=== PATIENT | male | born 1950 | race Caucasian/White ===

== ENCOUNTER 2020-12-18 10:36 | Outpatient (REF) | payer OTHER, SELFPAY ==
[2020-12-18 13:45] LABS: MANUAL DIFF FLAG NO
[2020-12-18 13:48] LABS: Basophils Absolute Auto 0.1 X10*3/uL (0.0-0.2); Basophils Percent Auto 0.8 % (0-2); Eosinophils Absolute Auto 0.1 X10*3/uL (0.0-0.4); Eosinophils Percent Auto 0.8 % (0-4); Hematocrit 39.4 % (42-52); Hemoglobin 13.1 g/dl (14.0-18.0); Imm Gran Abs Auto 0.03 X10*3/uL (0.00-0.03); Imm Gran Pct Auto 0.4 % (0.0-0.4); Lymphocytes Absolute Auto 1.8 X10*3/uL (1.2-4.9); Lymphocytes Percent Auto 25.6 % (20-40); Mean Corpuscular HGB Conc 33.2 g/dl (31.0-36.0); Mean Corpuscular Hemoglobin 30.3 pg (27.0-33.0); Mean Corpuscular Volume 91.2 fL (80-98); Mean Platelet Volume 12.1 fL (9.4-12.4); Monocytes Absolute Auto 0.7 X10*3/uL (0.1-1.2); Monocytes Percent Auto 9.2 % (2-11); Neutrophils Absolute Auto 4.5 X10*3/uL (2.0-8.3); Neutrophils Percent Auto 63.2 % (45-73); Platelet Count 249 X10*3/uL (160-400); Red Blood Count 4.32 X10*6/uL (4.60-5.80); Red Cell Distribution Width 14.5 % (11.0-16.0); White Blood Count 7.2 X10*3/uL (4.8-10.8)
[2020-12-18 14:08] LABS: Alanine Aminotransferase 16 U/L (0-40); Albumin Level 4.7 g/dL (3.5-5.0); Alkaline Phosphatase 137 U/L (39-117); Anion Gap 14 (12-20); Aspartate Amino Transferase 25 U/L (5-37); Bilirubin Total 0.5 mg/dL (0.0-1.0); Blood Urea Nitrogen 11 mg/dL (9-16); Calcium 9.6 mg/dL (8.4-10.2); Carbon Dioxide 27 mmol/L (22-29); Chloride 102 mmol/L (96-108); Cholesterol 222 mg/dL; Estimated Glomerular Filt Rate > 60; Glucose Fasting 97 mg/dL (60-99); HDL Cholesterol 72 mg/dL; LDL Cholesterol Calculated 138 mg/dl; Potassium 4.5 mmol/L (3.3-5.1); Sodium 138 mmol/L (135-145); Total Protein 7.3 g/dL (6.5-8.0); Triglycerides 60 mg/dL
[2020-12-18 14:30] LABS: TSH reflex Free T4 1.13 uIU/mL (0.32-4.0)
== END 2020-12-18 10:37 | disposition home or self-care (01) ==
LOC: HO.HMGCLDS 10:36
PROVIDERS: PCP Internal Medicine; Visit Provider Internal Medicine
DX: Z76.89 Persons encountering health services in other specified circumstances (principal)
CPT/HCPCS: 36415; 80053; 80061; 84443; 85025

== ENCOUNTER 2021-03-26 07:08 | Outpatient (REF) | payer MEDICARE, SELFPAY ==
[2021-03-26 12:35] LABS: Alanine Aminotransferase 16 U/L (0-40); Albumin Level 4.5 g/dL (3.5-5.0); Alkaline Phosphatase 124 U/L (39-117); Aspartate Amino Transferase 23 U/L (5-37); Bilirubin Direct 0.2 mg/dL (0.0-0.5); Bilirubin Total 0.4 mg/dL (0.0-1.0); Total Protein 6.9 g/dL (6.5-8.0)
== END 2021-03-26 07:09 | disposition home or self-care (01) ==
LOC: HO.HMGCLDS 07:08
PROVIDERS: PCP Internal Medicine; Visit Provider Internal Medicine
DX: R79.89 Other specified abnormal findings of blood chemistry (principal)
CPT/HCPCS: 36415; 80076

== ENCOUNTER 2021-12-20 09:13 | Outpatient (REF) | payer MEDICARE, SELFPAY ==
[2021-12-20 11:11] LABS: MANUAL DIFF FLAG NO
[2021-12-20 11:19] LABS: Basophils Absolute Auto 0.1 X10*3/uL (0.0-0.2); Basophils Percent Auto 0.9 % (0-2); Eosinophils Absolute Auto 0.1 X10*3/uL (0.0-0.4); Hematocrit 38.4 % (42.0-52.0); Imm Gran Abs Auto 0.04 X10*3/uL (0.00-0.03); Imm Gran Pct Auto 0.6 % (0.0-0.4); Lymphocytes Absolute Auto 1.7 X10*3/uL (1.2-4.9); Lymphocytes Percent Auto 25.7 % (20-40); Mean Corpuscular HGB Conc 33.9 g/dl (31.0-36.0); Mean Corpuscular Hemoglobin 29.7 pg (27.0-33.0); Mean Corpuscular Volume 87.9 fL (80.0-98.0); Mean Platelet Volume 11.4 fL (9.4-12.4); Monocytes Absolute Auto 0.7 X10*3/uL (0.1-1.2); Monocytes Percent Auto 10.9 % (2-11); Neutrophils Absolute Auto 4.1 x10*3/uL (2.0-8.3); Neutrophils Percent Auto 60.9 % (45-73); Platelet Count 260 X10*3/uL (160-400); Red Blood Count 4.37 X10*6/uL (4.60-5.80); White Blood Count 6.8 X10*3/uL (4.8-10.8)
[2021-12-20 11:32] LABS: Alanine Aminotransferase 11 U/L (0-40); Albumin Level 4.6 g/dL (3.5-5.0); Alkaline Phosphatase 124 U/L (39-117); Anion Gap 14 (12-20); Aspartate Amino Transferase 23 U/L (5-37); Bilirubin Total 0.8 mg/dL (0.0-1.0); Blood Urea Nitrogen 13 mg/dL (9-16); Calcium 9.2 mg/dL (8.4-10.2); Carbon Dioxide 25 mmol/L (22-29); Chloride 100 mmol/L (96-108); Estimated Glomerular Filt Rate > 60; Glucose Random 100 mg/dL (60-115); Potassium 4.6 mmol/L (3.3-5.1); Sodium 134 mmol/L (135-145); Total Protein 7.1 g/dL (6.5-8.0)
== END 2021-12-20 09:14 | disposition home or self-care (01) ==
LOC: HO.HMGCLDS 09:13
PROVIDERS: PCP Internal Medicine; Visit Provider Internal Medicine
DX: Z00.01 Encounter for general adult medical examination with abnormal findings (principal); R79.89 Other specified abnormal findings of blood chemistry; D64.9 Anemia, unspecified
CPT/HCPCS: 36415; 80053; 85025

== ENCOUNTER 2022-12-23 08:20 | Outpatient (AMB) | payer MEDICARE, SELFPAY ==
[2022-12-23 08:22] VITALS: BP 136/70; PULSE 61; O2SAT 96; BMI 23.9
--- NOTE | 2022-12-23 08:22 | MHC.PC.OV ---
Vital Signs 12/23/22 08:22 Height 5 ft 6 in Weight 148 lb 2 oz BMI 23.9 BP 136/70 Blood Pressure Location Rt brachial Position Sitting Pulse 61 Pulse Source Pulse Oximeter Pulse Oximetry (%) 96 Oxygen Delivery Method Room Air Intake Visit Reasons: Annual PE Allergies acetaminophen [From Percocet] Adverse Reaction (Mild, Verified 12/23/22 08:22) upset stomach latex Adverse Reaction (Mild, Verified 12/23/22 08:22) skin breakout oxycodone [From Percocet] Adverse Reaction (Mild, Verified 12/23/22 08:22) upset stomach Tobacco use date assessed: 12/23/22 Fall risk assessment: No Falls in past year Last assessed Fall Risk: 12/23/22 Dental Screening Dental Screen Date: 12/23/22 Did you have a dental visit in the last 12 months?: Yes Did you have a dental problem in the last 6 months where you did not have access to dental care?: No Was dental information given to patient?: No HPI Annual PE HPI Details Patient is 72-year-old gentleman came in today for his annual physical exam Continue to decline colonoscopy Due for labs patient is fasting today Patient is slightly anemic hemoglobin stable He has alkaline phosphatase is also elevated which is also stable 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 Has read 60 normals this past year. Return in 1 year for physical exam [facility] Family History Paternal Grandmother Diabetes Paternal Aunt Diabetes Father Substance use disorder Social History Housing: House Patient Tobacco Use Status: Former Tobacco user Quit Date: 1972 Tobacco use type: Cigarette Cigarette Packs Per Day: 0.5 Years Smoked: 5 e-Cigarette/Vaping Use: Never Used Current occupational status: retired Cognitive needs: No Hearing needs: No Vision needs: Yes Questionnaire PHQ-9 Over the last 2 weeks, how often have you been bothered by any of the following problems? 1. Little interest or pleasure in doing things: not at all 2. Feeling down, depressed, or hopeless: not at all 3. Trouble falling or staying asleep, or sleeping too much: not at all 4. Feeling tired or having little energy: not at all 5. Poor appetite or overeating: not at all 6. Feeling bad about yourself - or that you are a failure or have let yourself or your family down: not at all 7. Trouble concentrating on things, such as reading the newspaper or watching television: not at all 8. Moving or speaking so slowly that other people could have noticed. Or the opposite - being so fidgety or restless that you have been moving around a lot more than usual: not at all 9. Thoughts that you would be better off or of hurting yourself in some way: not at all Total score: 0 Depression Screening Interpretation: Negative 93682 - PHQ-9 Billing: Yes Source: Developed by Drs. Bertrand Arana, Katrin Kim, Shai Centeno and colleagues, with an educational pj from [employer]. Thrive Questionnaire Date Thrive assessed: 12/23/22 I am a: Patient What is your living situation today?: I have a steady place to live Within the past 12 months, did the food you bought not last and you didn't have the money to get more?: Never true Within the past 12 months, did you worry whether your food would run out before you got money to buy more?: Never true Do you have trouble paying for medicines?: No Do you have trouble getting transportation to medical appointments?: No Do you have trouble paying your heating and electricity bill?: No Do you have trouble taking care of your child, family member or friend?: No Do you have trouble with day-to-day activities such as bathing, preparing meals, shopping, managing finances, etc.?: No Are you currently unemployed and looking for a job?: No Are you interested in more education?: No AUDIT C Alcohol Use Questionnaire (AUDIT-C) 1. How often do you have a drink containing alcohol?: Monthly or less 2. How many drinks containing alcohol do you have on a typical day when you are drinking?: 1 or 2 3. How often do you have six or more drinks on one occasion?: Never Total Score: 1 Score Reviewed/Action Taken: Yes KEMAL-7 AMB Questionnaire KEMAL-7 Date KEMAL - 7 assessed: 12/23/22 Feeling nervous, anxious, or on edge: 0 = Not at all Not being able to stop or control worryin = Not at all Worrying too much about different things: 0 = Not at all Trouble relaxin = Not at all Being so restless that it is hard to sit still: 0 = Not at all Becoming easily annoyed or irritable: 0 = Not at all Feeling afraid as if something awful might happen: 0 = Not at all Total KEMAL-7 score (0-4 normal; 5-9 mild; 10-14 moderate; 15-21 severe): 0 Source: Developed by Drs. Bertrand Arana, Katrin Kim, Shai Centeno and colleagues, with an educational pj from [employer]. KEMAL-7 Assessment Billing KEMAL-7 Assessment Tool: KEMAL-7 Assessment 53546 Review of Systems Const Denies chills, Denies fever(s) and Denies headache(s) Eyes Denies blurry vision ENT Denies headache(s), Denies nasal discharge, Denies nasal obstruction, Denies odynophagia and Denies sinus pain Card Denies chest pain at rest and Denies chest pain with activity Resp Denies cough and Denies hemoptysis GI Denies diarrhea, Denies odynophagia, Denies vomiting and Denies hematemesis Reports as per HPI Musc Denies abnormal gait Skin/Breast Reports as per HPI Neuro Denies Neuro-related abnormal movements, Denies Abnormal speech present, Denies abnormal gait, Denies headache(s) and Denies Sensory deficit (Neuro) Psych Denies mood swings and Denies paranoia Endo Reports as per HPI Av/Lymph Reports as per HPI Aller/Immun Reports as per HPI Physical exam (Primary Care) Vital Signs: Last Vital Signs Pulse 61 12/23/22 08:22 BP 136/70 12/23/22 08:22 Pulse Ox 96 12/23/22 08:22 Oxygen Delivery Method Room Air 12/23/22 08:22 BMI result Body Mass Index 23.9 Tobacco/Smoking Status: Tobacco use Status Tobacco use date assessed 12/23/22 12/23/22 08:24 Patient Tobacco Use Status Former Tobacco user 12/23/22 08:24 Tobacco use type Cigarette 12/23/22 08:24 e-Cigarette/Vaping Use Never Used 12/23/22 08:24 PHQ-9: PHQ-9 Score PHQ-9: Total score 0 12/23/22 08:39 Depression Screening Interpretation: Negative Thrive Assessment: Date of Thrive Assessment Date Thrive assessed 12/23/22 12/23/22 08:33 Const General: cooperative, comfortable and no acute distress Orientation/consciousness: patient oriented x3 HENMT Head: Yes normocephalic and Yes atraumatic Eyes General: appearance normal, both eyes and all related structures Pupils: Equal, round and reactive pupils present EOM: EOMs intact bilaterally Neck Neck: Yes supple and No lymphadenopathy Thyroid: Thyroid normal Lymphatic: no lymphadenopathy noted Resp Effort & Inspection: normal respiratory effort and able to speak in complete sentences Auscultation: clear to auscultation bilaterally Cardio Heart sounds: S1 normal heart sound present and S2 normal heart sound present GI Palpation (GI): Soft to palpation and nontender Auscultation: normal bowel sounds General: Yes no CVA tenderness Back/Spine/Pelvis Back: no CVA tenderness Skin General skin exam: elasticity normal and turgor normal Neuro General: patient oriented x3 and gait normal Cranial nerves: Yes Equal, round and reactive pupils present Speech: No Abnormal speech present Sensory Exam: No Sensory deficit (Neuro) Coordination: tandem gait normal and Romberg test negative Extrem General: Yes normal exam except as noted and No edema Assessment and Plan Assessment & Plan (1) Encounter for general adult medical examination with abnormal findings: Code(s): Z00.01 - Encounter for general adult medical examination with abnormal findings (2) Anemia: Code(s): D64.9 - Anemia, unspecified (3) LFT elevation: Code(s): R79.89 - Other specified abnormal findings of blood chemistry (4) Colonoscopy refused: Code(s): Z53.20 - Procedure and treatment not carried out because of patient's decision for unspecified reasons (5) Arthritis: Code(s): M19.90 - Unspecified osteoarthritis, unspecified site Plan Patient is 72-year-old gentleman came in today for his annual physical exam Continue to decline colonoscopy Due for labs patient is fasting today Patient is slightly anemic hemoglobin stable He has alkaline phosphatase is also elevated which is also stable 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 Has read 60 normals this past year. Return in 1 year for physical exam Orders: Orders Comprehensive [place]. Panel Fast Today D64.9 - Anemia, unspecified, M19.90 - Unspecified osteoarthritis, unspecified site, R79.89 - Other specified abnormal findings of blood chemistry, Z00.01 - Encounter for general adult medical examination with abnormal findings Lipid Panel Today D64.9 - Anemia, unspecified, M19.90 - Unspecified osteoarthritis, unspecified site, R79.89 - Other specified abnormal findings of blood chemistry, Z00.01 - Encounter for general adult medical examination with abnormal findings Complete Blood Count Auto Diff Today D64.9 - Anemia, unspecified, M19.90 - Unspecified osteoarthritis, unspecified site, R79.89 - Other specified abnormal findings of blood chemistry, Z00.01 - Encounter for general adult medical examination with abnormal findings IRON PROFILE Today D64.9 - Anemia, unspecified, M19.90 - Unspecified osteoarthritis, unspecified site, R79.89 - Other specified abnormal findings of blood chemistry, Z00.01 - Encounter for general adult medical examination with abnormal findings Vitamin D 25-OH (D2 and D3) Today D64.9 - Anemia, unspecified, M19.90 - Unspecified osteoarthritis, unspecified site, R79.89 - Other specified abnormal findings of blood chemistry, Z00.01 - Encounter for general adult medical examination with abnormal findings Coding Level of Care Code Est Pt Prev Care >65y(96238) Diagnoses Encounter for general adult medical examination with abnormal findings Z00.01 Anemia D64.9 LFT elevation R79.89 Colonoscopy refused Z53.20 Arthritis M19.90 Additional Codes KEMAL-7 Assessment Billing - KEMAL-7 Assessment Tool: KEMAL-7 Assessment 94603 ([id number])
== END 2022-12-23 08:47 | disposition home or self-care (01) ==
PROVIDERS: Visit Provider Internal Medicine
DX: Z00.00 Encounter for general adult medical examination without abnormal findings (principal); D64.9 Anemia, unspecified; R79.89 Other specified abnormal findings of blood chemistry; Z53.20 Procedure and treatment not carried out because of patient's decision for unspecified reasons; M19.90 Unspecified osteoarthritis, unspecified site
CPT/HCPCS: 99397

== ENCOUNTER 2022-12-23 08:49 | Outpatient (REF) | payer MEDICARE, SELFPAY ==
[2022-12-23 11:17] LABS: MANUAL DIFF FLAG NO
[2022-12-23 11:24] LABS: Basophils Absolute Auto 0.1 X10*3/uL (0.0-0.2); Basophils Percent Auto 0.8 % (0-2); Eosinophils Absolute Auto 0.1 X10*3/uL (0.0-0.4); Hematocrit 38.7 % (42.0-52.0); Hemoglobin 12.7 g/dl (14.0-18.0); Imm Gran Abs Auto 0.05 X10*3/uL (0.00-0.03); Imm Gran Pct Auto 0.8 % (0.0-0.4); Lymphocytes Absolute Auto 1.7 X10*3/uL (1.2-4.9); Lymphocytes Percent Auto 27.8 % (20-40); Mean Corpuscular HGB Conc 32.8 g/dl (31.0-36.0); Mean Corpuscular Hemoglobin 29.8 pg (27.0-33.0); Mean Corpuscular Volume 90.8 fL (80.0-98.0); Mean Platelet Volume 12.1 fL (9.4-12.4); Monocytes Absolute Auto 0.6 X10*3/uL (0.1-1.2); Monocytes Percent Auto 9.9 % (2-11); Neutrophils Absolute Auto 3.6 x10*3/uL (2.0-8.3); Neutrophils Percent Auto 59.7 % (45-73); Platelet Count 232 X10*3/uL (160-400); Red Blood Count 4.26 X10*6/uL (4.60-5.80); Red Cell Distribution Width 14.5 % (11.0-16.0); White Blood Count 6.1 X10*3/uL (4.8-10.8)
[2022-12-23 12:09] LABS: Alanine Aminotransferase 11 U/L (0-40); Albumin Level 4.5 g/dL (3.5-5.0); Alkaline Phosphatase 114 U/L (39-117); Anion Gap 11 (12-20); Aspartate Amino Transferase 21 U/L (5-37); Bilirubin Total 0.6 mg/dL (0.0-1.0); Blood Urea Nitrogen 14 mg/dL (9-16); Calcium 9.4 mg/dL (8.4-10.2); Carbon Dioxide 25 mmol/L (22-29); Chloride 105 mmol/L (96-108); Cholesterol 209 mg/dL; Estimated Glomerular Filt Rate > 60; Glucose Fasting 104 mg/dL (60-99); HDL Cholesterol 64 mg/dL; Iron 92 mcg/dL (45-160); LDL Cholesterol Calculated 132 mg/dl; Percent Iron Saturation 28 % (15-50); Potassium 4.3 mmol/L (3.3-5.1); Sodium 137 mmol/L (135-145); Total Iron Binding Capacity 328 mcg/dL (228-428); Total Protein 7.2 g/dL (6.5-8.0); Triglycerides 69 mg/dL; Unsaturated Iron Binding 236 ug/dL
[2022-12-27 15:34] LABS: Vitamin D 25-OH, D2 <4 ng/mL; Vitamin D 25-OH, D3 44 ng/mL; Vitamin D 25-OH, Total 44 ng/mL (30-100)
== END 2022-12-23 08:50 | disposition home or self-care (01) ==
LOC: HO.HMGCLDS 08:49
PROVIDERS: PCP Internal Medicine; Visit Provider Internal Medicine
DX: Z00.01 Encounter for general adult medical examination with abnormal findings (principal); D64.9 Anemia, unspecified; M19.90 Unspecified osteoarthritis, unspecified site; R79.89 Other specified abnormal findings of blood chemistry
CPT/HCPCS: 36415; 80053; 80061; 82306; 83540; 85025

== ENCOUNTER 2024-01-08 09:51 | Outpatient (AMB) | payer MEDICARE, SELFPAY ==
[2024-01-08 09:52] VITALS: BP 130/70; PULSE 55; O2SAT 99; BMI 23.6
--- NOTE | 2024-01-08 09:52 | MHC.PC.OV ---
Vital Signs 01/08/24 09:52 Height 5 ft 6 in Weight 146 lb 2 oz BMI 23.6 BP 130/70 Blood Pressure Location Rt brachial Position Sitting Pulse 55 Pulse Source Pulse Oximeter Pulse Oximetry (%) 99 Oxygen Delivery Method Room Air Intake Visit Reasons: PE - see comments Allergies acetaminophen [From Percocet] Adverse Reaction (Mild, Verified 01/08/24 09:55) upset stomach latex Adverse Reaction (Mild, Verified 01/08/24 09:55) skin breakout oxycodone [From Percocet] Adverse Reaction (Mild, Verified 01/08/24 09:55) upset stomach Medication List - Last Reconciled 01/08/24 by Agueda Grubbs MD betamethasone dipropionate 0.05% 1 appl topical DAILY PRN Tobacco use date assessed: 01/08/24 Fall risk assessment: No Falls in past year Last assessed Fall Risk: 01/08/24 Dental Screening Dental Screen Date: 01/08/24 Did you have a dental visit in the last 12 months?: Yes Did you have a dental problem in the last 6 months where you did not have access to dental care?: No Was dental information given to patient?: Patient has dentist HPI PE - see comments HPI Details Patient is 73-year-old gentleman came in today for his annual physical exam Continue to decline colonoscopy Due for labs patient is fasting today Last year his fasting sugar came back at 104 Patient is slightly anemic hemoglobin stable He has alkaline phosphatase is also elevated which is also stable 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 Offer no new complaints Patient like to read and has read a lot of books since last 1 year Follow-up 1 year [facility] Family History Paternal Grandmother Diabetes Paternal Aunt Diabetes Father Substance use disorder Social History Housing: House Patient Tobacco Use Status: Former Tobacco user Tobacco use type: Cigarette Cigarette Packs Per Day: 0.5 Years Smoked: 5 e-Cigarette/Vaping Use: Never Used service: No Current occupational status: retired Cognitive needs: No Hearing needs: No Vision needs: Yes Questionnaire PHQ-9 Over the last 2 weeks, how often have you been bothered by any of the following problems? 1. Little interest or pleasure in doing things: not at all 2. Feeling down, depressed, or hopeless: not at all 3. Trouble falling or staying asleep, or sleeping too much: not at all 4. Feeling tired or having little energy: not at all 5. Poor appetite or overeating: not at all 6. Feeling bad about yourself - or that you are a failure or have let yourself or your family down: not at all 7. Trouble concentrating on things, such as reading the newspaper or watching television: not at all 8. Moving or speaking so slowly that other people could have noticed. Or the opposite - being so fidgety or restless that you have been moving around a lot more than usual: not at all 9. Thoughts that you would be better off or of hurting yourself in some way: not at all Total score: 0 Depression Screening Interpretation: Negative Depression Screening Done: Yes 43661 - PHQ-9 Billing: Yes Source: Developed by Drs. Bertrand Arana, Katrin Kim, Shai Centeno and colleagues, with an educational pj from [employer]. Thrive Questionnaire Date Thrive assessed: 01/08/24 I am a: Patient What is your living situation today?: I have a steady place to live Within the past 12 months, did the food you bought not last and you didn't have the money to get more?: Never true Within the past 12 months, did you worry whether your food would run out before you got money to buy more?: Never true Do you have trouble paying for medicines?: No Do you have trouble getting transportation to medical appointments?: No Do you have trouble paying your heating and electricity bill?: No Do you have trouble taking care of your child, family member or friend?: No Do you have trouble with day-to-day activities such as bathing, preparing meals, shopping, managing finances, etc.?: No Are you currently unemployed and looking for a job?: No Are you interested in more education?: No Please select the resources that you would like help with: None Currently or been in a relationship where the following occur: No concerns reported THRIVE Score: 0 AUDIT C Alcohol Use Questionnaire (AUDIT-C) 1. How often do you have a drink containing alcohol?: Never 3. How often do you have six or more drinks on one occasion?: Never Total Score: 0 Score Reviewed/Action Taken: Yes KEMAL-7 AMB Questionnaire KEMAL-7 Date KEMAL - 7 assessed: 01/08/24 Feeling nervous, anxious, or on edge: 0 = Not at all Not being able to stop or control worryin = Not at all Worrying too much about different things: 0 = Not at all Trouble relaxin = Not at all Being so restless that it is hard to sit still: 0 = Not at all Becoming easily annoyed or irritable: 0 = Not at all Feeling afraid as if something awful might happen: 0 = Not at all Total KEMAL-7 score (0-4 normal; 5-9 mild; 10-14 moderate; 15-21 severe): 0 Source: Developed by Drs. Bertrand Arana, Katrin Kim, Shai Centeno and colleagues, with an educational pj from [employer]. KEMAL-7 Assessment Billing KEMAL-7 Assessment Tool: KEMAL-7 Assessment 15283 Review of Systems Const Denies chills, Denies fever(s) and Denies headache(s) Eyes Denies blurry vision ENT Denies headache(s), Denies nasal discharge, Denies nasal obstruction, Denies odynophagia and Denies sinus pain Card Denies chest pain at rest and Denies chest pain with activity Resp Denies cough and Denies hemoptysis GI Denies diarrhea, Denies odynophagia, Denies vomiting and Denies hematemesis Reports as per HPI Musc Denies abnormal gait Skin/Breast Reports as per HPI Neuro Denies Neuro-related abnormal movements, Denies Abnormal speech present, Denies abnormal gait, Denies headache(s) and Denies Sensory deficit (Neuro) Psych Denies mood swings and Denies paranoia Endo Reports as per HPI Av/Lymph Reports as per HPI Aller/Immun Reports as per HPI Physical exam (Primary Care) Vital Signs: Last Vital Signs Pulse 55 01/08/24 09:52 BP 130/70 01/08/24 09:52 Pulse Ox 99 01/08/24 09:52 Oxygen Delivery Method Room Air 01/08/24 09:52 BMI result Body Mass Index 23.6 Tobacco/Smoking Status: Tobacco use Status Tobacco use date assessed 01/08/24 01/08/24 09:57 Patient Tobacco Use Status Former Tobacco user 01/08/24 09:53 Tobacco use type Cigarette 01/08/24 09:53 e-Cigarette/Vaping Use Never Used 01/08/24 09:53 PHQ-9: PHQ-9 Score PHQ-9: Total score 0 01/08/24 10:03 Depression Screening Interpretation: Negative Thrive Assessment: Date of Thrive Assessment Date Thrive assessed 01/08/24 01/08/24 09:57 Currently or been in a relationship where the following occur: No concerns reported Const General: cooperative, comfortable and no acute distress Orientation/consciousness: patient oriented x3 HENMT Head: Yes normocephalic and Yes atraumatic Eyes General: appearance normal, both eyes and all related structures Pupils: Equal, round and reactive pupils present EOM: EOMs intact bilaterally Neck Neck: Yes supple and No lymphadenopathy Thyroid: Thyroid normal Lymphatic: no lymphadenopathy noted Resp Effort & Inspection: normal respiratory effort and able to speak in complete sentences Auscultation: clear to auscultation bilaterally Cardio Heart sounds: S1 normal heart sound present and S2 normal heart sound present GI Palpation (GI): Soft to palpation and nontender Auscultation: normal bowel sounds General: Yes no CVA tenderness Back/Spine/Pelvis Back: no CVA tenderness Skin General skin exam: elasticity normal and turgor normal Neuro General: patient oriented x3 and gait normal Cranial nerves: Yes Equal, round and reactive pupils present Speech: No Abnormal speech present Sensory Exam: No Sensory deficit (Neuro) Coordination: tandem gait normal and Romberg test negative Extrem General: Yes normal exam except as noted and No edema Assessment and Plan Assessment & Plan (1) Encounter for general adult medical examination with abnormal findings: Code(s): Z00.01 - Encounter for general adult medical examination with abnormal findings (2) Anemia: Code(s): D64.9 - Anemia, unspecified Qualifiers: Anemia type: unspecified type Qualified Code(s): D64.9 - Anemia, unspecified (3) Impaired fasting blood sugar: Code(s): R73.01 - Impaired fasting glucose (4) Colonoscopy refused: Code(s): Z53.20 - Procedure and treatment not carried out because of patient's decision for unspecified reasons (5) Arthritis: Code(s): M19.90 - Unspecified osteoarthritis, unspecified site Plan Patient is 73-year-old gentleman came in today for his annual physical exam Continue to decline colonoscopy Due for labs patient is fasting today Last year his fasting sugar came back at 104 Patient is slightly anemic hemoglobin stable He has alkaline phosphatase is also elevated which is also stable 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 Offer no new complaints Patient like to read and has read a lot of books since last 1 year Follow-up 1 year Orders: Orders Vitamin D 25-OH (D2 and D3) Today D64.9 - Anemia, unspecified, Z00.01 - Encounter for general adult medical examination with abnormal findings Ferritin Today D64.9 - Anemia, unspecified, Z00.01 - Encounter for general adult medical examination with abnormal findings Complete Blood Count Auto Diff Today D64.9 - Anemia, unspecified, R73.01 - Impaired fasting glucose, Z00.01 - Encounter for general adult medical examination with abnormal findings TSH reflex Free T4 Today D64.9 - Anemia, unspecified, Z00.01 - Encounter for general adult medical examination with abnormal findings Vitamin B12 Today D64.9 - Anemia, unspecified, Z00.01 - Encounter for general adult medical examination with abnormal findings Hemoglobin A1c Today D64.9 - Anemia, unspecified, Z00.01 - Encounter for general adult medical examination with abnormal findings Comprehensive [place]. Panel Fast Today D64.9 - Anemia, unspecified, M19.90 - Unspecified osteoarthritis, unspecified site, R73.01 - Impaired fasting glucose, Z00.01 - Encounter for general adult medical examination with abnormal findings Lipid Panel Today D64.9 - Anemia, unspecified, M19.90 - Unspecified osteoarthritis, unspecified site, R73.01 - Impaired fasting glucose, Z00.01 - Encounter for general adult medical examination with abnormal findings Coding Level of Care Code Est Pt Level 3 (03894) Est Pt Prev Care >65y(62733) Diagnoses Encounter for general adult medical examination with abnormal findings Z00.01 Anemia, unspecified type D64.9 Anemia type: unspecified type Impaired fasting blood sugar R73.01 Colonoscopy refused Z53.20 Arthritis M19.90 Additional Codes KEMAL-7 Assessment Billing - KEMAL-7 Assessment Tool: KEMAL-7 Assessment 43632 ([id number])
== END 2024-01-08 10:30 | disposition home or self-care (01) ==
PROVIDERS: PCP Internal Medicine; Visit Provider Internal Medicine
DX: Z00.00 Encounter for general adult medical examination without abnormal findings (principal); D64.9 Anemia, unspecified; R73.01 Impaired fasting glucose; Z53.20 Procedure and treatment not carried out because of patient's decision for unspecified reasons; M19.90 Unspecified osteoarthritis, unspecified site
CPT/HCPCS: 99397

== ENCOUNTER 2024-01-08 10:17 | Outpatient (REF) | payer MEDICARE, SELFPAY ==
[2024-01-08 13:28] LABS: MANUAL DIFF FLAG NO
[2024-01-08 13:36] LABS: Basophils Absolute Auto 0.1 X10*3/uL (0.0-0.2); Basophils Percent Auto 0.8 % (0-2); Eosinophils Percent Auto 0.6 % (0-4); Hematocrit 37.7 % (42.0-52.0); Hemoglobin 12.9 g/dl (14.0-18.0); Imm Gran Abs Auto 0.04 X10*3/uL (0.00-0.03); Imm Gran Pct Auto 0.6 % (0.0-0.4); Lymphocytes Absolute Auto 1.8 X10*3/uL (1.2-4.9); Lymphocytes Percent Auto 27.4 % (20-40); Mean Corpuscular HGB Conc 34.2 g/dl (31.0-36.0); Mean Corpuscular Hemoglobin 30.7 pg (27.0-33.0); Mean Corpuscular Volume 89.8 fL (80.0-98.0); Monocytes Absolute Auto 0.6 X10*3/uL (0.1-1.2); Monocytes Percent Auto 9.7 % (2-11); Neutrophils Absolute Auto 3.9 x10*3/uL (2.0-8.3); Neutrophils Percent Auto 60.9 % (45-73); Platelet Count 219 X10*3/uL (160-400); Red Cell Distribution Width 14.5 % (11.0-16.0); White Blood Count 6.4 X10*3/uL (4.8-10.8)
[2024-01-08 14:00] LABS: Estimated Average Glucose 108 mg/dL; Hemoglobin A1c % 5.4 % (<6.0)
[2024-01-08 14:08] LABS: Alanine Aminotransferase 15 U/L (0-40); Albumin Level 4.5 g/dL (3.5-5.0); Alkaline Phosphatase 109 U/L (39-117); Anion Gap 10 (12-20); Aspartate Amino Transferase 25 U/L (5-37); Bilirubin Total 0.7 mg/dL (0.0-1.0); Blood Urea Nitrogen 11 mg/dL (9-16); Calcium 9.6 mg/dL (8.4-10.2); Carbon Dioxide 26 mmol/L (22-29); Chloride 100 mmol/L (96-108); Cholesterol 217 mg/dL (<200); Estimated Glomerular Filt Rate > 60; Glucose Fasting 109 mg/dL (60-99); HDL Cholesterol 65 mg/dL (>40); LDL Cholesterol Calculated 140 mg/dL (<100); Potassium 4.4 mmol/L (3.3-5.1); Sodium 132 mmol/L (135-145); Total Protein 7.1 g/dL (6.5-8.0); Triglycerides 61 mg/dL (<150)
[2024-01-08 14:24] LABS: Vitamin B12 642 pg/mL (200-900)
[2024-01-08 14:35] LABS: Ferritin 250 ng/mL (20-250); TSH reflex Free T4 1.03 uIU/mL (0.32-4.0)
[2024-01-14 15:13] LABS: Vitamin D 25-OH, D2 <4 ng/mL; Vitamin D 25-OH, D3 37 ng/mL; Vitamin D 25-OH, Total 37 ng/mL (30-100)
== END 2024-01-08 10:18 | disposition home or self-care (01) ==
LOC: HO.HMGCLDS 10:17
PROVIDERS: PCP Internal Medicine; Visit Provider Internal Medicine
DX: Z00.01 Encounter for general adult medical examination with abnormal findings (principal); D64.9 Anemia, unspecified; R73.01 Impaired fasting glucose; M19.90 Unspecified osteoarthritis, unspecified site
CPT/HCPCS: 36415; 80053; 80061; 82306; 82607; 82728; 83036; 84443; 85025

== ENCOUNTER 2025-01-24 10:15 | Outpatient (REF) | payer MEDICARE, SELFPAY ==
[2025-01-24 13:39] LABS: MANUAL DIFF FLAG NO
[2025-01-24 14:03] LABS: Hemoglobin A1C 133.1330 umol/L
[2025-01-24 14:11] LABS: Hematocrit 36.9 % (42.0-52.0); Hemoglobin 12.4 g/dl (14.0-18.0); Imm Gran Abs Auto 0.03 X10*3/uL (0.00-0.03); Imm Gran Pct Auto 0.5 % (0.0-0.4); Lymphocytes Absolute Auto 2.0 X10*3/uL (1.2-4.9); Mean Corpuscular HGB Conc 33.6 g/dl (31.0-36.0); Mean Corpuscular Hemoglobin 29.7 pg (27.0-33.0); Mean Corpuscular Volume 88.5 fL (80.0-98.0); NRBC Abs Auto 0.000 X10*3/uL (0.0-0.012); NRBC Pct Auto 0.0 /100WBC (0.0-0.2); Platelet Count 231 X10*3/uL (160-400); Red Blood Count 4.17 X10*6/uL (4.60-5.80); White Blood Count 6.4 X10*3/uL (4.8-10.8)
[2025-01-24 14:35] LABS: Alanine Aminotransferase 16 U/L (0-40); Albumin Level 4.5 g/dL (3.5-5.0); Alkaline Phosphatase 110 U/L (39-117); Anion Gap 10 (12-20); Aspartate Amino Transferase 31 U/L (5-37); Blood Urea Nitrogen 13 mg/dL (9-16); Calcium 9.1 mg/dL (8.4-10.2); Carbon Dioxide 27 mmol/L (22-29); Chloride 101 mmol/L (96-108); Estimated Glomerular Filt Rate > 60; Potassium 4.4 mmol/L (3.3-5.1); Sodium 134 mmol/L (135-145); Total Protein 6.8 g/dL (6.5-8.0)
[2025-01-24 14:38] LABS: Ferritin 257 ng/mL (20-250)
== END 2025-01-24 10:16 | disposition home or self-care (01) ==
LOC: HO.HMGCLDS 10:15
PROVIDERS: PCP Internal Medicine; Visit Provider Internal Medicine
DX: Z01.818 Encounter for other preprocedural examination (principal); H26.9 Unspecified cataract; R73.01 Impaired fasting glucose; D64.9 Anemia, unspecified; E87.1 Hypo-osmolality and hyponatremia
CPT/HCPCS: 36415; 80053; 82728; 83036; 84443; 85025; 96127; 99212

== ENCOUNTER 2025-01-24 10:15 | Outpatient (AMB) | payer MEDICARE, SELFPAY ==
[2025-01-24 10:26] VITALS: BP 118/70; PULSE 63; O2SAT 98; BMI 22.3
--- NOTE | 2025-01-24 10:26 | A.OFFPC_ITS ---
Vital Signs 01/24/25 10:26 Height 5 ft 6 in Weight 138 lb BMI 22.3 BP 118/70 Blood Pressure Location Lt brachial Position Sitting Pulse 63 Pulse Source Pulse Oximeter Pulse Oximetry (%) 98 Intake Visit Reasons: Pre op cataracts Allergies acetaminophen (From Percocet) Adverse Reaction (Mild, Verified 01/24/25 10:26) upset stomach latex Adverse Reaction (Mild, Verified 01/24/25 10:26) skin breakout oxycodone (From Percocet) Adverse Reaction (Mild, Verified 01/24/25 10:26) upset stomach Medication List - Last Reconciled 01/24/25 by Agueda Grubbs MD betamethasone dipropionate 0.05% 1 appl topical DAILY PRN Tobacco use date assessed: 01/24/25 Fall risk assessment: No Falls in past year Last assessed Fall Risk: 01/24/25 Dental Screening Dental Screen Date: 01/24/25 Did you have a dental visit in the last 12 months?: Yes Did you have a dental problem in the last 6 months where you did not have access to dental care?: No Was dental information given to patient?: Patient has dentist HPI Pre op cataracts HPI Details Chief Complaint The patient presents for a pre-operative evaluation for cataract surgery and updates on previous lab abnormalities. History The patient is a 74-year-old male presenting for a pre-operative evaluation for cataract surgery. Cataracts: - The patient is scheduled for cataract surgery on the left eye in February and the right eye in March. - The patient previously had surgery on a different ocular issue in the left eye on June 01. - Dr. Luis Carlos Saul will perform the [facility] [place], [place] cataract surgery. [facility] Anemia: - Patient had a previous lab indicating slight anemia from December of last year. That need to be monitored Elevated Blood Sugar: - Previous labs indicated slightly eleva paola blood sugar levels in December of the previous year. Low Sodium: - Prior lab results revealed low sodium during the same period as previous testing. Medical History: - Slight anemia (noted in lab results fr om December of last year). - Elevated blood sugar levels (noted in lab results from December last ). - Low sodium levels (noted in lab result s from December). Surgical History: - Prior surgery on the left eye conducte d by Dr. Ava Soto on June 01 to address a macular issue, involving a gas bubble injection. Problem List - Cataracts - Anemia - Elevated Blood Sugar - Hyponatremia lJosue [facility] Surgical History History of repair of macular hole Family History Paternal Grandmother Diabetes Paternal Aunt Diabetes Father Substance use disorder Social History Housing: House Patient Tobacco Use Status: Former Tobacco user Tobacco use type: Cigarette Cigarette Packs Per Day: 0.5 Years Smoked: 5 e-Cigarette/Vaping Use: Never Used service: No Current occupational status: retired Cognitive needs: No Hearing needs: No Vision needs: Yes Questionnaire PHQ-9 Over the last 2 weeks, how often have you been bothered by any of the following problems? 1. Little interest or pleasure in doing things: not at all 2. Feeling down, depressed, or hopeless: not at all 3. Trouble falling or staying asleep, or sleeping too much: not at all 4. Feeling tired or having little energy: not at all 5. Poor appetite or overeating: not at all 6. Feeling bad about yourself - or that you are a failure or have let yourself or your family down: not at all 7. Trouble concentrating on things, such as reading the newspaper or watching television: not at all 8. Moving or speaking so slowly that other people could have noticed. Or the opposite - being so fidgety or restless that you have been moving around a lot more than usual: not at all 9. Thoughts that you would be better off or of hurting yourself in some way: not at all Total score: 0 Depression Screening Interpretation: Negative Depression Screening Done: Yes 43671 - PHQ-9 Billing: Yes Source: Developed by Drs. Bertrand Arana, Katrin Kim, Shai Centeno and colleagues, with an educational pj from [employer] Thrive Questionnaire Date Thrive assessed: 01/24/25 I am a: Patient What is your living situation today?: I have a steady place to live Within the past 12 months, did the food you bought not last and you didn't have the money to get more?: Never true Within the past 12 months, did you worry whether your food would run out before you got money to buy more?: Never true Do you have trouble paying for medicines?: No Do you have trouble getting transportation to medical appointments?: No Do you have trouble paying your heating and electricity bill?: No Do you have trouble taking care of your child, family member or friend?: No Do you have trouble with day-to-day activities such as bathing, preparing meals, shopping, managing finances, etc.?: No Are you currently unemployed and looking for a job?: No Are you interested in more education?: No Please select the resources that you would like help with: None Currently or been in a relationship where the following occur: No concerns reported THRIVE Score: 0 AUDIT C Alcohol Use Questionnaire (AUDIT-C) 1. How often do you have a drink containing alcohol?: Never 3. How often do you have six or more drinks on one occasion?: Never Total Score: 0 Score Reviewed/Action Taken: Yes KEMAL-7 AMB Questionnaire KEMAL-7 Date KEMAL - 7 assessed: 01/24/25 Feeling nervous, anxious, or on edge: 0 = Not at all Not being able to stop or control worryin = Not at all Worrying too much about different things: 0 = Not at all Trouble relaxin = Not at all Being so restless that it is hard to sit still: 0 = Not at all Becoming easily annoyed or irritable: 0 = Not at all Feeling afraid as if something awful might happen: 0 = Not at all Total KEMAL-7 score (0-4 normal; 5-9 mild; 10-14 moderate; 15-21 severe): 0 Source: Developed by Drs. Bertrand Arana, Katrin Kim, Shai Centeno and colleagues, with an educational pj from [employer] KEMAL-7 Assessment Billing KEMAL-7 Assessment Tool: KEMAL-7 Assessment 63921 Physical exam (Primary Care) Vital Signs: Last Vital Signs Pulse 63 01/24/25 10:26 BP 118/70 01/24/25 10:26 Pulse Ox 98 01/24/25 10:26 BMI result Body Mass Index 22.3 Tobacco/Smoking Status: Tobacco use Status Tobacco use date assessed 01/24/25 01/24/25 10:28 Patient Tobacco Use Status Former Tobacco user 01/24/25 10:28 Tobacco use type Cigarette 01/24/25 10:28 e-Cigarette/Vaping Use Never Used 01/24/25 10:28 PHQ-9: PHQ-9 Score PHQ-9: Total score 0 01/24/25 10:28 Depression Screening Interpretation: Negative Thrive Assessment: Date of Thrive Assessment Date Thrive assessed 01/24/25 01/24/25 10:28 Currently or been in a relationship where the following occur: No concerns reported Coding Level of Care Code Est Pt Level 4 (02272) Diagnoses Pre-op evaluation Z01.818 Impaired fasting blood sugar R73.01 Anemia, unspecified type D64.9 Anemia type: unspecified type Hyponatremia E87.1 Additional Codes KEMAL-7 Assessment Billing - KEMAL-7 Assessment Tool: KEMAL-7 Assessment 49060 ([id number]) PHQ-9 - 64602 - PHQ-9 Billing: Yes ([id number]) Assessment & Plan Assessment & Plan (1) Pre-op evaluation: Code(s): Z01.818 - Encounter for other preprocedural examination Category: Medical (2) Impaired fasting blood sugar: Code(s): R73.01 - Impaired fasting glucose Category: Medical (3) Anemia: Code(s): D64.9 - Anemia, unspecified Category: Medical Qualifiers: Anemia type: unspecified type Qualified Code(s): D64.9 - Anemia, unspecified (4) Hyponatremia: Code(s): E87.1 - Hypo-osmolality and hyponatremia Category: Medical Plan Plan 1. Cataracts - Plan for cataract surgery with Dr. Luis Carlos Saul in February (left eye) and March (right eye). - Ensure proper scheduling for pre-operative evaluations and follow-ups. 2. Anemia - Repeat lab tests to monitor hemoglobin levels and assess stability. 3. Elevated Blood Sugar - Repeat lab testing to evaluate current blood glucose levels. 4. Hyponatremia - Repeat sodium assessment to verify stability and manage appropriately. Medical Decision Making The patient's primary concern is the upcoming cataract surgery, which is scheduled for the left and right eyes in February and March, respectively. Dr. Luis Carlos Saul will perform the surgeries. During the pre-operative check, it was noted that prior lab results revealed slight anemia, elevated blood sugar, and low sodium levels, requiring re-evaluation to ensure stability before proceeding with surgery. The decision to follow up with repeat laboratory assessments is based on identifying and mitigating any potential risks associated with these findings. The goals are to maintain the patient's health stability and optimize surgical outcomes by addressing any underlying conditions or abnormalities present in previous lab tests. Coordination of care with ophthalmology regarding surgical procedures and timing is [facility] Orders: Orders Hemoglobin A1c Today D64.9 - Anemia, unspecified, E87.1 - Hypo-osmolality and hyponatremia, R73.01 - Impaired fasting glucose, Z01.818 - Encounter for other preprocedural examination Ferritin Today D64.9 - Anemia, unspecified, E87.1 - Hypo-osmolality and hyponatremia, R73.01 - Impaired fasting glucose, Z01.818 - Encounter for other preprocedural examination Complete Blood Count Auto Diff Today D64.9 - Anemia, unspecified, E87.1 - Hypo- osmolality and hyponatremia, R73.01 - Impaired fasting glucose, Z01.818 - Encounter for other preprocedural examination Comprehensive Met. Panel Today D64.9 - Anemia, unspecified, E87.1 - Hypo- osmolality and hyponatremia, R73.01 - Impaired fasting glucose, Z01.818 - Encounter for other preprocedural examination TSH reflex Free T4 Today D64.9 - Anemia, unspecified, E87.1 - Hypo-osmolality and hyponatremia, R73.01 - Impaired fasting glucose, Z01.818 - Encounter for o ther preprocedural examination
== END 2025-01-24 13:54 | disposition home or self-care (01) ==
LOC: HO.HMCC 10:16
PROVIDERS: PCP Internal Medicine; Visit Provider Internal Medicine
DX: Z01.818 Encounter for other preprocedural examination (principal); R73.01 Impaired fasting glucose; D64.9 Anemia, unspecified; E87.1 Hypo-osmolality and hyponatremia

== ENCOUNTER → 2025-04-13 23:59 | Outpatient (BNV) | payer MEDICARE, SELFPAY | PROVIDERS: PCP Internal Medicine; Visit Provider Internal Medicine | DX: I69.354 Hemiplegia and hemiparesis following cerebral infarction affecting left non-dominant side (principal); I10 Essential (primary) hypertension; R31.21 Asymptomatic microscopic hematuria | CPT/HCPCS: G0180 ==

== ENCOUNTER 2025-04-19 07:43 | Outpatient (AMB) | payer MEDICARE, SELFPAY ==
[2025-04-19 07:58] VITALS: BP 112/72; PULSE 73; O2SAT 97; BMI 21.6
--- NOTE | 2025-04-19 07:58 | MHC.PC.OV ---
Vital Signs 04/19/25 07:58 Height 5 ft 6 in Weight 134 lb BMI 21.6 BP 112/72 Blood Pressure Location Lt brachial Position Sitting Pulse 73 Pulse Source Pulse Oximeter Pulse Oximetry (%) 97 Intake Visit Reasons: discharge appt Allergies acetaminophen (From Percocet) Adverse Reaction (Mild, Verified 04/19/25 07:58) upset stomach latex Adverse Reaction (Mild, Verified 04/19/25 07:58) skin breakout oxycodone (From Percocet) Adverse Reaction (Mild, Verified 04/19/25 07:58) upset stomach Medication List - Last Reconciled 04/19/25 by Agueda Grubbs MD amlodipine 2.5 mg PO DAILY aspirin 1 tab PO DAILY atorvastatin 40 mg PO BEDTIME docusate sodium 100 mg PO BID sennosides (senna) 17.2 mg PO BEDTIME tamsulosin 0.4 mg PO BEDTIME Tobacco use date assessed: 01/24/25 Fall risk assessment: No Falls in past year Last assessed Fall Risk: 04/19/25 Dental Screening Dental Screen Date: 01/24/25 HPI HPI Comments History of Present Illness Details History The patient is a 75 year old male presenting for a follow-up visit after a recent hospitalization and rehabilitation for a stroke. Sequela of Cerebrovascular Accident: - The patient presented to hospital with a sudden onset of left lower extremity weakness, prompting a stroke alert. - He was initially hospitalized at [facility] for five days starting March 08. - A CT scan of the head and neck was negative for acute findings, and a CT angiogram showed no proximal large vessel occlusion but did reveal moderate stenosis at the distal intracranial right vertebral artery. - An MRI of the brain showed an acute infarct in the right tee radiata and basal ganglia without mass effect or hemorrhage. - The stroke affected his left leg from the knee down to the foot, causing weakness. - While hospitalized, he was started on Plavix for 3 months, to be followed by lifelong aspirin therapy. - Following his acute hospitalization, he was transferred to [facility] on March 08, where he underwent occupational and physical therapy until his discharge on March 31. - He is currently receiving in-home therapy until May 02. - The patient continues to have weakness and some pain from the knee down on the left side, but his mobility has improved, and he is able to ambulate with a walker and perform most activities of daily living with some assistance from his . - He followed up with his neurologist, Dr. Ureña, who was pleased with his progress and scheduled a follow-up in six months. Benign Prostatic Hyperplasia: - The patient was taking tamsulosin (Flomax) for his prostate. - This was started in the rehab center because he was urinating frequently and not sleeping well, finding his bladder was filling up despite not drinking much at night. - He reports he stopped taking Flomax and still wakes up once or twice a night to urinate, which is the same as when he was taking the medication. Constipation: - The patient was taking a laxative for constipation but has stopped, as he no longer needs it. - He now maintains regular bowel movements through a diet rich in leafy greens and fresh fruit. - He continues to take Colace. Lower Extremity Edema: - The patient developed edema in his lower extremities, for which he was instructed to sleep with two pillows under his feet. Medical History: - Cerebrovascular accident (stroke), recent - Left hemiparesis with weakness of the left leg below the knee - Hypertension, controlled - Hyperlipidemia - Benign prostatic hyperplasia - Constipation, resolved - Anemia, hemoglobin was 11.2 on March 28 - Hospitalization at [facility] for five days from March 08 - Inpatient rehabilitation at [facility] from March 09 to March 31 Medications: - Amlodipine for hypertension - Atorvastatin for hyperlipidemia - Tamsulosin for prostate (recently discontinued by patient) - Colace for constipation - Aspirin, low dose for secondary stroke prevention Social History: - The patient lives with his . - He is able to ambulate with a walker. - Functional Status: He can dress himself but has difficulty with his left leg. - Activities of Daily Living: He can get into the walk-in shower and bathe himself with his 's assistance for his back. - Nutrition: His cooks a lot of leafy greens and he eats a lot of fresh fruit. - He does not drive; his drives. [facility] The patient saw Dr. Ureña (neurology) at [facility] and has a follow-up appointment in six months. He is receiving in-home therapy until May 02. [facility] Surgical History History of repair of macular hole Family History Paternal Grandmother Diabetes Paternal Aunt Diabetes Father Substance use disorder Social History Housing: House Patient Tobacco Use Status: Former Tobacco user Tobacco use type: Cigarette Cigarette Packs Per Day: 0.5 Years Smoked: 5 Packs Per Year: 3 e-Cigarette/Vaping Use: Never Used service: No Current occupational status: retired Cognitive needs: No Hearing needs: No Vision needs: Yes Questionnaire Thrive Questionnaire Date Thrive assessed: 01/24/25 I am a: Patient What is your living situation today?: I have a steady place to live Within the past 12 months, did the food you bought not last and you didn't have the money to get more?: Never true Within the past 12 months, did you worry whether your food would run out before you got money to buy more?: Never true Do you have trouble paying for medicines?: No Do you have trouble getting transportation to medical appointments?: No Do you have trouble paying your heating and electricity bill?: No Do you have trouble taking care of your child, family member or friend?: No Do you have trouble with day-to-day activities such as bathing, preparing meals, shopping, managing finances, etc.?: No Are you currently unemployed and looking for a job?: No Are you interested in more education?: No Please select the resources that you would like help with: None Currently or been in a relationship where the following occur: No concerns reported THRIVE Score: 0 KEMAL-7 AMB Questionnaire KEMAL-7 Date KEMAL - 7 assessed: 01/24/25 Source: Developed by Drs. Bertrand Arana, Katrin Kim, Shai Centeno and colleagues, with an educational pj from [employer]. Review of Systems Narrative Review of Systems General: No fever no chills neurological: No headaches no dizziness ear nose throat: No sore throat no hearing difficulty no ear pain cardiovascular: No syncope, no chest pain, no palpitations gastrointestinal: No nausea vomiting or diarrhea endocrine: No polyuria polydipsia no heat intolerance genitourinary: No dysuria skin: No new complaints Physical exam (Primary Care) Vital Signs: Last Vital Signs Pulse 73 04/19/25 07:58 BP 112/72 04/19/25 07:58 Pulse Ox 97 04/19/25 07:58 BMI result Body Mass Index 21.6 Tobacco/Smoking Status: Tobacco use Status Tobacco use date assessed 01/24/25 04/19/25 07:59 Patient Tobacco Use Status Former Tobacco user 04/19/25 07:59 Tobacco use type Cigarette 04/19/25 07:59 e-Cigarette/Vaping Use Never Used 04/19/25 07:59 Thrive Assessment: Date of Thrive Assessment Date Thrive assessed 01/24/25 04/19/25 07:59 Currently or been in a relationship where the following occur: No concerns reported Narrative Diagnostic results - CT scan of head and neck: No acute findings. - CT angiogram of head and neck: No proximal large vessel occlusion in the major arteries; moderate stenosis at the distal intracranial right vertebral artery. - MRI of the brain: Acute infarct in the right tee radiata and basal ganglia with no associated mass effect or hemorrhage. - Labs (03/28): Electrolytes, liver enzymes, and kidney functions are stable. - Hemoglobin (03/28): 11.2. Const General: cooperative, comfortable and no acute distress Orientation/consciousness: patient oriented x3 HENMT Head: Yes normocephalic Eyes General: appearance normal, both eyes and all related structures Neck Neck: Yes supple Resp Effort & Inspection: normal respiratory effort, no cough and no stridor Cardio Rhythm: regular rhythm Heart sounds: S1 normal heart sound present and S2 normal heart sound present Skin General skin exam: turgor normal Neuro Other: left leg weakness is noted , able to stand with support and walk with walker General: patient oriented x3 and moves all extremities Extrem Right lower extremity: no edema Left lower extremity: no edema Coding Level of Care Code Est Pt Level 5 (68933) Diagnoses Hospital discharge follow-up Z51.89 Left leg weakness R29.898 Cerebrovascular accident (CVA) involving left cerebral hemisphere I63.9 Anemia, unspecified type D64.9 Anemia type: unspecified type Long-term use of aspirin therapy Z79.82 Dependent on walker for ambulation Z99.89 Time Spent (min) 40 Comment reviewing all the discharge notes, face to face, coordination of care Assessment & Plan Assessment & Plan (1) Hospital discharge follow-up: Code(s): Z51.89 - Encounter for other specified aftercare Category: Medical (2) Left leg weakness: Code(s): R29.898 - Other symptoms and signs involving the musculoskeletal system Category: Medical (3) Cerebrovascular accident (CVA) involving left cerebral hemisphere: Code(s): I63.9 - Cerebral infarction, unspecified Category: Medical (4) Anemia: Code(s): D64.9 - Anemia, unspecified Category: Medical Qualifiers: Anemia type: unspecified type Qualified Code(s): D64.9 - Anemia, unspecified (5) Long-term use of aspirin therapy: Code(s): 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 - He has been advised that he can discontinue tamsulosin (Flomax) as it provides no additional benefit for his nocturia. - A referral will be placed for outpatient physical therapy at [facility], with the patient to start after . - No labs were ordered today as they were recently done during his rehab stay. - The patient will continue to follow up with his neurologist as scheduled. - He is scheduled to return for a follow-up visit and physical exam in the spring, on July 25. Orders: Referrals Physical Medicine and Rehabilitation Referral I63.9 - Cerebral infarction, unspecified, R29.898 - Other symptoms and signs involving the musculoskeletal system
== END 2025-04-19 08:22 | disposition home or self-care (01) ==
LOC: HO.HMCC 07:44
PROVIDERS: PCP Internal Medicine; Visit Provider Internal Medicine
DX: Z51.89 Encounter for other specified aftercare (principal); R29.898 Other symptoms and signs involving the musculoskeletal system; I63.9 Cerebral infarction, unspecified; D64.9 Anemia, unspecified; Z79.82 Long term (current) use of aspirin; Z99.89 Dependence on other enabling machines and devices

== ENCOUNTER → 2025-04-19 07:43 | Outpatient (BNVA) | payer MEDICARE, SELFPAY | PROVIDERS: PCP Internal Medicine; Visit Provider Internal Medicine | DX: Z09 Encounter for follow-up examination after completed treatment for conditions other than malignant neoplasm (principal); I63.9 Cerebral infarction, unspecified; D64.9 Anemia, unspecified; R29.898 Other symptoms and signs involving the musculoskeletal system; Z79.82 Long term (current) use of aspirin; Z99.89 Dependence on other enabling machines and devices | CPT/HCPCS: 99212 ==

== ENCOUNTER 2025-05-09 13:16 | Outpatient (AMB) | payer MEDICARE, SELFPAY ==
--- OUTSIDE RECORDS SUMMARY | 2025-05-07 23:59 | XMS_ITS | Continuity of Care Document ---
Author Organization [facility] Address [address] [facility], [address] d Floor, [address] [place] [id number] Care Team Providers Care Associate Curator Name Role Phone Romie HI, [facility] Primary Care Physician [phone] Encounter [facility] Date(s): 04/07/25 - 05/07/25 [facility] [address], [address] [place] [id number] Encounter Type: Triage Allergies, Adverse Reactions, Alerts Substance Criticality Severity Reaction Reaction Severity Status Latex rash Active Medications aspirin 81 mg oral tablet, chewable 81 mg, By Mouth, Daily, Refills 0, Maintenance, 03/07/25 10:46:00 AM EDT, Partial fill upon patientrequest if the prescription is for a schedule II opioid drug. Start Date: 03/07/25 Status: Ordered Medication Dispense Status: Completed Total Allowed Fills: 1 Fills Dispensed: 0 atorvastatin 80 mg oral tablet = 80 mg, By Mouth, Daily at bedtime, 0 Refills, Maintenance, 03/07/25 10:46:00 AM EDT, Tablet, Partial fill upon patient request if the prescription is for a schedule II opioid drug. Start Date: 03/07/25 Status: Ordered Medication Dispense Status: Completed Total Allowed Fills: 1 Fills Dispensed: 0 bromfenac 0.07% ophthalmic solution See Instructions, 1 drops left eye Daily, 0 Refills, Maintenance, 03/04/25 12:28:00 AM EDT, Solution, Partial fill upon patient request if the prescription is for a schedule II opioid drug. Start Date: 03/04/25 Status: Ordered Medication Dispense Status: Completed Total Allowed Fills: 1 Fills Dispensed: 0 Plavix 75 mg oral tablet 75 mg, By Mouth, Daily, Stop after 3 months. Continue aspirin monotherapy., Refills 0, Maintenance,03/07/25 10:46:00 AM EDT, Partial fill upon patient request if the prescription is for a schedule II opioid drug. Start Date: 03/07/25 Stop Date: 06/05/25 Status: Ordered Medication Dispense Status: Completed Total Allowed Fills: 1 Fills Dispensed: 0 Problem List Condition Confirmation Course Effective Dates Status Health [facility] Informant Macular hole of left eye Confirmed Active Social History Social History Type Response Sex Sex Representation Male (finding) Patient Care team information Care Team Personnel Name: Rita Hand RN Position: S RN Member Role: Primary Care Nurse Name: Rosalba Worrell RN Position: S RN Member Role: Primary Care Nurse Name: Juliann Larson RN Position: S RN Member Role: Primary Care Nurse Name: Agueda Grubbs MD Position: Reference Physician Member Role: PCP Address: [address] Telecom: Name: Rolanda Swanson RN Position: S RN Member Role: Primary Care Nurse Care Team Related Persons Name: JOSE ALBERTO CASTORENA Insurance Providers Guarantor name: SEEMA CASTORENA [employer] Information #: 1 Payer: [facility] [employer] ADV HMO Payer Identifier: NA Member Number: [id number] Group Number: [id number] Subscriber Identifier: Relationship to Subscriber: self Coverage Type: Medicare HMO Coverage Verification Date: NA Telecom: Address: Health Plan Information #: 2 Payer: [facility] [employer] [place] Payer Identifier: NA Member Number: [id number] Group Number: [id number] Subscriber Identifier: NA Relationship to Subscriber: self Coverage Type: NA Coverage Verification Date: NA Telecom: NA Address: Health Plan Information #: 3 Payer: [employer] HMO POS Payer Identifier: NA Member Number: [id number] Group Number: [id number] Subscriber Identifier: NA Relationship to Subscriber: self Coverage Type: Managed Care (Private) Coverage Verification Date: NA Telecom: Address:
[2025-05-09 13:21] VITALS: BP 132/68; PULSE 76; RESP 16; O2SAT 99; BMI 22.8
--- NOTE | 2025-05-09 13:21 | A.OFFPC_ITS ---
Vital Signs 05/09/25 13:21 Height 5 ft 6 in Weight 141 lb 6 oz BMI 22.8 BP 132/68 Blood Pressure Location Rt brachial Position Sitting Respiration 16 Pulse 76 Pulse Source Pulse Oximeter Pulse Oximetry (%) 99 Oxygen Delivery Method Room Air Intake Visit Reasons: left foot/calf swelling Allergies acetaminophen (From Percocet) Adverse Reaction (Mild, Verified 05/09/25 13:21) upset stomach latex Adverse Reaction (Mild, Verified 05/09/25 13:21) skin breakout oxycodone (From Percocet) Adverse Reaction (Mild, Verified 05/09/25 13:21) upset stomach Medication List - Last Reconciled 05/09/25 by Agueda Grubbs MD aspirin 1 tab PO DAILY atorvastatin 40 mg PO BEDTIME docusate sodium 100 mg PO BID sennosides (senna) 17.2 mg PO BEDTIME tamsulosin 0.4 mg PO BEDTIME Tobacco use date assessed: 05/09/25 Fall risk assessment: No Falls in past year Last assessed Fall Risk: 05/09/25 Dental Screening Dental Screen Date: 05/09/25 Did you have a dental visit in the last 12 months?: No Did you have a dental problem in the last 6 months where you did not have access to dental care?: No Was dental information given to patient?: Patient declined HPI HPI Comments History of Present Illness Details History of Present Illness The patient is a 75 year old male presenting for evaluation of left lower extremity swelling. Left lower extremity edema: - The patient reports swelling in his le ft foot which began in the hospital during rehabilitation following a recent stroke. - The swelling affects his left leg from just below the knee down to his foot. - He has attempted to manage the edema b y elevating his feet on two pillows at night and using compression socks, but these measures have not provided relief. - The patient denies any pain associated with the swelling. - An ultrasound of the leg was performed which ruled out a blood clot. Cerebrovascular accident: - The patient recently had a right-sided stroke, which resulted in left leg weakness. Essential Hypertension: - The patient takes amlodipine 2.5 mg fo r his blood pressure. Social History: - The patient lives in [place]. - He has a visiting nurse who comes to h is home and checks his blood pressure, though this service may be ending. - He is scheduled to begin outpatient [facility] on May 25. Diagnostic Results: - Ultrasound: A previous ultrasound of t he leg was negative for a blood clot. [facility] Surgical History History of repair of macular hole Family History Paternal Grandmother Diabetes Paternal Aunt Diabetes Father Substance use disorder Social History Housing: House Patient Tobacco Use Status: Former Tobacco user Tobacco use type: Cigarette Cigarette Packs Per Day: 0.5 Years Smoked: 5 e-Cigarette/Vaping Use: Never Used service: No Current occupational status: retired Cognitive needs: No Hearing needs: No Vision needs: Yes Questionnaire Thrive Questionnaire Date Thrive assessed: 01/24/25 I am a: Patient What is your living situation today?: I have a steady place to live Within the past 12 months, did the food you bought not last and you didn't have the money to get more?: Never true Within the past 12 months, did you worry whether your food would run out before you got money to buy more?: Never true Do you have trouble paying for medicines?: No Do you have trouble getting transportation to medical appointments?: No Do you have trouble paying your heating and electricity bill?: No Do you have trouble taking care of your child, family member or friend?: No Do you have trouble with day-to-day activities such as bathing, preparing meals, shopping, managing finances, etc.?: No Are you currently unemployed and looking for a job?: No Are you interested in more education?: No Currently or been in a relationship where the following occur: No concerns reported THRIVE Score: 0 AUDIT C Alcohol Use Questionnaire (AUDIT-C) 1. How often do you have a drink containing alcohol?: Never 3. How often do you have six or more drinks on one occasion?: Never Total Score: 0 Score Reviewed/Action Taken: Yes KEMAL-7 AMB Questionnaire KEMAL-7 Date KEMAL - 7 assessed: 01/24/25 Source: Developed by Drs. Bertrand Arana, Katrin Kim, Shai Centeno and colleagues, with an educational pj from [employer]. Review of Systems Narrative Review of Systems - General: No fever no chills - Neurological: No headaches no dizziness - Ear nose throat: No sore throat no hearing difficulty no ear pain - Cardiovascular: No syncope, no chest pain, no palpitations - Gastrointestinal: No nausea vomiting or diarrhea Physical exam (Primary Care) Vital Signs: Last Vital Signs Pulse 76 05/09/25 13:21 Resp 16 05/09/25 13:21 BP 132/68 05/09/25 13:21 Pulse Ox 99 05/09/25 13:21 Oxygen Delivery Method Room Air 05/09/25 13:21 BMI result Body Mass Index 22.8 Tobacco/Smoking Status: Tobacco use Status Tobacco use date assessed 05/09/25 05/09/25 13:23 Patient Tobacco Use Status Former Tobacco user 05/09/25 13:23 Tobacco use type Cigarette 05/09/25 13:23 e-Cigarette/Vaping Use Never Used 05/09/25 13:23 Thrive Assessment: Date of Thrive Assessment Date Thrive assessed 01/24/25 05/09/25 13:23 Currently or been in a relationship where the following occur: No concerns reported Narrative Physical Exam General: No acute distress HEENT: No acute findings Neck: Supple Respiratory system: Able to talk in full sentences, no audible wheeze Cardiovascular: S1-S2 regular in rate and rhythm, blood pressure 132/68 Gastrointestinal: No pain Extremities: Left lower extremity swelling noted, no pain reported right more than left SUPPORT MANAGER: Alert awake oriented x3 motor intact, history of right-sided stroke affecting left side, able to walk with cane Skin: Normal turgor Coding Level of Care Code Est Pt Level 3 (43685) Diagnoses Swelling of both lower extremities M79.89 Assessment & Plan Assessment & Plan (1) Swelling of both lower extremities: Code(s): M79.89 - Other specified soft tissue disorders Category: Medical Plan Problem List - Cerebrovascular accident - Left lower extremity edema - Essential Hypertension Plan - Discontinue amlodipine 2.5 mg, as it may be contributing to the lower extremity edema. - Prescribe a diuretic to be taken in the morning to reduce fluid retention. Lasix 20 mg - The prescription will be for 10 tablets, and the patient is advised to stop the medication once the swelling improves. - The patient will be monitored, and he is advised to call in about a week to report his status. - An order will be placed for blood tests to be completed before his next follow-up. - A follow-up appointment is scheduled for July 25. Orders: Orders Complete Blood Count Auto Diff 3 Months D64.9 - Anemia, unspecified, M79.89 - Other specified soft tissue disorders, R73.01 - Impaired fasting glucose Comprehensive Met. Panel 3 Months D64.9 - Anemia, unspecified, M79.89 - Other specified soft tissue disorders, R73.01 - Impaired fasting glucose LDL Cholesterol Direct 3 Months D64.9 - Anemia, unspecified, M79.89 - Other specified soft tissue disorders, R73.01 - Impaired fasting glucose Medications: New furosemide (Lasix) 20 mg PO DAILY 10 tabs 0RF
--- OUTSIDE RECORDS SUMMARY | 2025-05-09 17:09 | XMS_ITS | Clinical Summary ---
Author Organization [facility] Address [address] [place] [address] Phone Care Team Providers Care Pre K Special Education Teacher Name Role Phone Agueda Grubbs MD Primary Care Provider [phone] Allergies Active Allergy Reactions Criticality Noted Date Comments Lactose 03/17/2025 Lactose intolerant Latex Rash 03/07/2025 Medications senna (SENOKOT) 8.6 mg tablet Take 2 tablets (17.2 mg total) by mouth at bedtime. 60 each 03/30/20 25 026 Active tamsulosin (FLOMAX) 0.4 mg 24 hr capsule Take 1 capsule (0.4 mg total) by mouth at bedtime. Capsules should be taken 30 minutes following the same meal each day. 30 each 03/30/20 25 Active atorvastatin (LIPITOR) 40 mg tablet Take 1 tablet (40 mg total) by mouth at bedtime. 30 each 03/31/20 25 Active amLODIPine (NORVASC) 2.5 mg tablet Take 1 tablet (2.5 mg total) by mouth 1 (one) time each day. 30 each 03/31/20 25 Active acetaminophen (TYLENOL) 325 mg tablet Take 2 tablets (650 mg total) by mouth every 6 (six) hours if needed for mild pain or fever - temperature GREATER than 38 C (100.4 F). 03/30/20 25 025 docusate sodium (COLACE) 100 mg capsule Take 1 capsule (100 mg total) by mouth 2 (two) times a day. 60 each 03/30/20 25 025 aspirin 81 mg chewable tabletIndications:p revention of cerebrovascular accident Chew 1 tablet (81 mg total) 1 (one) time each day. 30 each 03/31/20 25 025 clopidogreL (PLAVIX) 75 mg tabletIndications:c erebral thromboembolism prevention Take 1 tablet (75 mg total) by mouth 1 (one) time each day. Duration 90 days, Stop after 3 months and continue with Aspirin mono therapy 30 each 03/31/20 25 025 Active Problems Problem Noted Date Diagnosed Date CVA (cerebral vascular accident) 03/07/2025 Encounters Date Type Department Care Team Description 03/27/2025 Plan of Care Documentation [facility] [address] [place] [phone] 03/20/2025 Plan of Care Documentation [facility] [address] [place] [phone] 03/13/2025 Plan of Care Documentation [facility] [address] [place] [phone] 03/07/2025 1:31 PM EDT - 03/31/2025 12:00 PM EST Hospital Encounter [facility] [address] [place] [phone] Lisa Rendon DO CVA (cerebral vascular accident) ([facility] V24, [facility] V28) [I63.9] (Primary Dx) Discharge Disposition: Home-Health Care [facility] from Last 3 Months Surgical History Surgery Date Site/Laterality Comments TONSILLECTOMY PROCEDURE: HISTORICAL TONSILLECTOMY VASECTOMY PROCEDURE: HISTORICAL VASECTOMY HERNIA REPAIR 2019 Right PROCEDURE: LAPAROSCOPY, INGUINAL HERNIA REPAIR; COMMENT: Dr. Turner Medical History Medical History Date Comments Right inguinal hernia DX:Right i nguinal hernia Family History Medical History Relation Name Comments Lung cancer Brother Other: Other Father Heart failure Mother Relation Name Status Comments Brother Father Mother Social History Tobacco Use Types Packs/Day Years Used Date Smoking Tobacco: Former Smokeless Tobacco: Never Alcohol Use Standard Drinks/Week Comments No 0 (1 standard drink = 0.6 oz pur e alcohol) Health Literacy Answer Date Recorded How often do you need to hav e someone help you when you read instructions, pamphlets, or other written material from your doctor or pharmacy? Never 03/30/2025 Caregiver: How often do you need to have someone help you when you read instructions, pamphlets, or other written material from your doctor or pharmacy? Not on file 03/30/2025 Transportation Answer Date Recorded Has the lack of transportati on kept you from meetings, work, or from getting things needed for daily living? No Has the lack of transportati on kept you from medical appointments or from getting medications? No 03/07/2025 Social Isolation Answer Date Recorded How often do you feel lonely or isolated from th ose around you? Never 03/30/2025 Food Risk Answer Date Recorded Within the past 12 months we worried whether our food would run out before we got money to buy more. Never true 03/15/2025 Within the past 12 months th e food we bought just didn't last and we didn't have money to get more. Never true 03/15/2025 Sex and Gender Information Value Date Recorded Sex Assigned at Male 03/06/2025 12:42 PM EDT Legal Sex Male 6:31 PM EST Gender Identity Male 03/06/2025 12:42 PM EDT Sexual Orientation Choose not to disclose 2024 12:42 PM EDT Last Filed Vital Signs Vital Sign Reading Time Taken Comments Blood Pressure 124/82 03/31/2025 9:16 AM EST Pulse 78 03/31/2025 9:16 AM EST Temperature 36.5 C (97.7 F) 03/31/2025 9:16 AM EST 97.7f Respiratory Rate 16 03/31/2025 9:16 AM EST Oxygen Saturation 100% 03/31/2025 9:16 AM EST Inhaled Oxygen Concentration - - Weight 58.1 kg (128 lb) 03/25/2025 1:00 PM EST Height 168 cm (5' 6.14 ) 03/16/2025 11:00 AM EST Body Mass Index 20.57 03/16/2025 11:00 AM EST Plan of Treatment Upcoming Encounters Date Type Department Care Team (Late st Contact Info) Description 05/25/2025 10:00 AM EST Evaluation [address] [phone] Ashley Valderrama, PT Health Maintenance Due Date Last Done Comments DTaP,Tdap,and Td Vaccines (1 - Tdap) 1968 Pneumococcal Vaccine: 50+ Years (1 of 1 - PCV) 1999 RSV Immunization Adult Patients (1 - 1-dose 75+ series) 2024 COVID-19 Vaccine (1 - 2024-2 6 season) 2025 Influenza Vaccine (#1) 2025 01/17/2018 Cholesterol Screening (Lipid Panel) 03/06/2025 Hepatitis C Screening 03/06/2025 Medicare Annual Wellness Visit 03/06/2025 Social Influencers of Health Screening 03/30/2026 03/30/2025 Falls Risk Assessment 03/31/2026 03/31/2025 Zoster Vaccines Completed 03/28/2018, 01/17/2018 Depression Screening Completed 03/30/2025 HIB Vaccines Aged Out No longer eligi ble based on patient's age to complete this topic HPV Vaccines Aged Out No longer eligi ble based on patient's age to complete this topic Hepatitis A Vaccines Aged Out No long er eligible based on patient's age to complete this topic Hepatitis B Vaccines Aged Out No long er eligible based on patient's age to complete this topic IPV Vaccines Aged Out No longer eligi ble based on patient's age to complete this topic MMR Vaccines Aged Out No longer eligi ble based on patient's age to complete this topic Meningococcal ACWY Vaccine Aged Out N o longer eligible based on patient's age to complete this topic Meningococcal B Vaccine Aged Out No l onger eligible based on patient's age to complete this topic RSV Immunization Patients Under 20 months Aged Out No longer eligible b ased on patient's age to complete this topic Varicella Vaccines Aged Out No longer eligible based on patient's age to complete this topic Procedures Procedure Name Priority Date/Time Associated Diagnosis Comments CBC WITH AUTO DIFFERENTIAL Routine 03/28/2025 5:25 AM EST COMPREHENSIVE METABOLIC PANEL Routine 03/28/2025 5:25 AM EST CBC AND DIFFERENTIAL Routine 03/28/2025 5:25 AM EST COMPLETE BLOOD COUNT Routine 03/21/2025 5:44 AM EST COMPREHENSIVE METABOLIC PANEL Routine 03/21/2025 5:44 AM EST VITAMIN D 25 HYDROXY Routine 2025 5:16 AM EST COMPLETE BLOOD COUNT Routine 2025 5:16 AM EST COMPREHENSIVE METABOLIC PANEL Routine 2025 5:16 AM EST THYROID STIMULATING HORMONE WITH REFLEX TO FREE T4 AND FREE T3 Add-On 03/17/2025 5:14 AM EST COMPLETE BLOOD COUNT Routine 03/17/2025 5:14 AM EST COMPREHENSIVE METABOLIC PANEL Routine 03/17/2025 5:14 AM EST GROSSMAN URINE CULTURE TUBE Routine 03/16/2025 12:15 PM EST URINALYSIS WITH REFLEX MICROSCOPIC AND CULTURE Routine 03/16/2025 12:15 PM EST URINALYSIS WITH REFLEX MICROSCOPIC AND CULTURE Routine 03/16/2025 12:15 PM EST CULTURE URINE Routine 03/16/2025 12:15 PM EST LAVENDER - EDTA Routine 03/15/2025 5:16 AM EST EXTRA TUBES Routine 03/15/2025 5:16 AM EST BASIC METABOLIC PANEL Routine 03/15/2025 5:16 AM EST COMPLETE BLOOD COUNT Routine 03/14/2025 5:24 AM EST BASIC METABOLIC PANEL Routine 03/14/2025 5:24 AM EST CBC WITH AUTO DIFFERENTIAL Routine 03/10/2025 5:41 AM EDT PROTHROMBIN TIME WITH INR Routine 03/10/2025 5:41 AM EDT CBC AND DIFFERENTIAL Routine 03/10/2025 5:41 AM EDT SST - GOLD Routine 03/10/2025 5:37 AM EDT EXTRA TUBES Routine 03/10/2025 5:37 AM EDT CBC WITH AUTO DIFFERENTIAL Routine 03/08/2025 5:42 AM EDT COMPREHENSIVE METABOLIC PANEL Routine 03/08/2025 5:42 AM EDT CBC AND DIFFERENTIAL Routine 03/08/2025 5:42 AM EDT from Last 3 Months Results * (ABNORMAL) CBC auto differential (03/28/2025 5:25 AM EST) Only the most recent of3 resultswithin the time period is included. [facility] Signature WBC 6.1 4.8 - 10.8 K/mcL LAB HEMETOLOGY METHOD 03/28/2025 6:50 AM [facility] RBC 3.70(L) 4.50 - 5.50 M/mcL LAB HEMETOLOGY METHOD 03/28/2025 6:50 AM [facility] Hemoglobin 11.2(L) 13.5 - 17.5 g/dL LAB HEMETOLOGY METHOD 03/28/2025 6:50 AM [facility] Hematocrit 32.0(L) 42.0 - 54.0 % LAB HEMETOLOGY METHOD 03/28/2025 6:50 AM [facility] MCV 87.2 79.0 - 98.0 FL LAB HEMETOLOGY METHOD 03/28/2025 6:50 AM [facility] MCH 30.5 27.0 - 32.0 pcg LAB HEMETOLOGY METHOD 03/28/2025 6:50 AM [facility] MCHC 35.0 32.0 - 37.0 g/dL LAB HEMETOLOGY METHOD 03/28/2025 6:50 AM [facility] RDW 14.6 11.0 - 15.0 % LAB HEMETOLOGY METHOD 03/28/2025 6:50 AM [facility] Platelets 264 130 - 400 K/mcL LAB HEMETOLOGY METHOD 03/28/2025 6:50 AM [facility] MPV 11.3(H) 7.0 - 11.0 FL LAB HEMETOLOGY METHOD 03/28/2025 6:50 AM [facility] NRBC 0.0 <1.0 % LAB HEMETOLOGY METHOD 03/28/2025 6:50 AM [facility] NRBC Absolute 0.00 <0.10 K/mcL LAB HEMETOLOGY METHOD 03/28/2025 6:50 AM [facility] Neutrophils Relative 62.9 % LAB HEMETOLOGY METHOD 03/28/2025 6:50 AM [facility] Lymphocytes Relative 21.3 % LAB HEMETOLOGY METHOD 03/28/2025 6:50 AM [facility] Monocytes Relative 10.7 % LAB HEMETOLOGY METHOD 03/28/2025 6:50 AM [facility] Eosinophils Relative 2.8 % LAB HEMETOLOGY METHOD 03/28/2025 6:50 AM [facility] Basophils Relative 0.8 % LAB HEMETOLOGY METHOD 03/28/2025 6:50 AM [facility] Immature Granulocytes Relative 1.5 % LAB HEMETOLOGY METHOD 03/28/2025 6:50 AM [facility] Neutrophils Absolute 3.86 1.50 - 7.00 K/mcL LAB HEMETOLOGY METHOD 03/28/2025 6:50 AM [facility] Lymphocytes Absolute 1.31 1.00 - 5.00 K/mcL LAB HEMETOLOGY METHOD 03/28/2025 6:50 AM EST [facility] Monocytes Absolute 0.66 0.20 - 1.00 K/mcL LAB HEMETOLOGY METHOD 03/28/2025 6:50 AM EST [facility] Eosinophils Absolute 0.17 0.00 - 0.50 K/[facility] LAB HEMETOLOGY METHOD 03/28/2025 6:50 AM EST [facility] Basophils Absolute 0.05 0.00 - 0.20 K/[facility] LAB HEMETOLOGY METHOD 03/28/2025 6:50 AM [facility] Immature Granulocytes Absolute 0.09(H) 0.00 - 0.03 K/[facility] LAB HEMETOLOGY METHOD 03/28/2025 6:50 AM [facility] Blood Venous blood specimen / Unknown Venipuncture / Unknown 03/28/2025 5:25 AM EST 03/28/2025 6:30 AM EST us Lisa Rendon DO LAB BLOOD ORDERABLES Emma l Result [facility] [address] [place] [address], * (ABNORMAL) Comprehensive metabolic panel (03/28/2025 5:25 AM EST) Only the most recent of5 resultswithin the time period is included. Sodium 130(L) 133 - 145 mmol/L LAB CHEMISTRY METHOD 03/28/2025 7:46 AM [facility] Potassium 4.1 3.5 - 5.5 mmol/L LAB CHEMISTRY METHOD 03/28/2025 7:46 AM [facility] Chloride 95(L) 96 - 110 mmol/L LAB CHEMISTRY METHOD 03/28/2025 7:46 AM [facility] CO2 28 21 - 32 mmol/L LAB CHEMISTRY METHOD 03/28/2025 7:46 AM [facility] Anion Gap 7 3 - 11 LAB CHEMISTRY METHOD 03/28/2025 7:46 AM [facility] Glucose 105(H) 70 - 100 mg/dL LAB CHEMISTRY METHOD 03/28/2025 7:46 AM [facility] BUN 11 5 - 25 mg/dL LAB CHEMISTRY METHOD 03/28/2025 7:46 AM [facility] Creatinine 0.71 0.70 - 1.30 mg/dL LAB CHEMISTRY METHOD 03/28/2025 7:46 AM [facility] eGFR 95 >=60 mL/min/1. 73m2 LAB CHEMISTRY METHOD 03/28/2025 7:46 AM [facility] Comment:Calculation based on the Chronic Kidney Disease Epidemiology Collaboration (CKD-EPI) equation refit without adjustment for race. BUN/Creatinine Ratio 15.5 LAB CHEMISTRY METHOD 03/28/2025 7:46 AM [facility] Calcium 9.2 8.5 - 10.5 mg/dL LAB CHEMISTRY METHOD 03/28/2025 7:46 AM [facility] AST (SGOT) 40 10 - 42 unit/L LAB CHEMISTRY METHOD 03/28/2025 7:46 AM [facility] ALT (SGPT) 86(H) 10 - 60 unit/L LAB CHEMISTRY METHOD 03/28/2025 7:46 AM [facility] Alkaline Phosphatase 111 42 - 121 unit/L LAB CHEMISTRY METHOD 03/28/2025 7:46 AM [facility] Total Protein 6.2 6.0 - 8.0 g/dL LAB CHEMISTRY METHOD 03/28/2025 7:46 AM [facility] Albumin 3.7 3.2 - 5.0 g/dL LAB CHEMISTRY METHOD 03/28/2025 7:46 AM [facility] Total Bilirubin 0.6 0.0 - 1.4 mg/dL LAB CHEMISTRY METHOD 03/28/2025 7:46 AM [facility] Blood Venous blood specimen / Unknown Venipuncture / Unknown 03/28/2025 5:25 AM EST 03/28/2025 6:30 AM EST us Lisa Rendon DO LAB BLOOD ORDERABLES Emma sonia Result [facility] [address] [place] [address], * (ABNORMAL) Complete blood count (03/21/2025 5:44 AM EST) Only the most recent of4 resultswithin the time period is included. WBC 6.9 4.8 - 10.8 K/mcL LAB HEMETOLOGY METHOD 03/21/2025 6:34 AM [facility] RBC 3.70(L) 4.50 - 5.50 M/mcL LAB HEMETOLOGY METHOD 03/21/2025 6:34 AM [facility] Hemoglobin 11.2(L) 13.5 - 17.5 g/dL LAB HEMETOLOGY METHOD 03/21/2025 6:34 AM [facility] Hematocrit 32.0(L) 42.0 - 54.0 % LAB HEMETOLOGY METHOD 03/21/2025 6:34 AM [facility] MCV 87.2 79.0 - 98.0 FL LAB HEMETOLOGY METHOD 03/21/2025 6:34 AM [facility] MCH 30.5 27.0 - 32.0 pcg LAB HEMETOLOGY METHOD 03/21/2025 6:34 AM [facility] MCHC 35.0 32.0 - 37.0 g/dL LAB HEMETOLOGY METHOD 03/21/2025 6:34 AM [facility] RDW 14.5 11.0 - 15.0 % LAB HEMETOLOGY METHOD 03/21/2025 6:34 AM EST [facility] Platelets 296 130 - 400 K/mcL LAB HEMETOLOGY METHOD 03/21/2025 6:34 AM EST [facility] MPV 11.2(H) 7.0 - 11.0 FL LAB HEMETOLOGY METHOD 03/21/2025 6:34 AM EST [facility] NRBC 0.0 <1.0 % LAB HEMETOLOGY METHOD 03/21/2025 6:34 AM EST [facility] NRBC Absolute 0.00 <0.10 K/mcL LAB HEMETOLOGY METHOD 03/21/2025 6:34 AM [facility] Blood Venous blood specimen / Unknown Venipuncture / Unknown 03/21/2025 5:44 AM EST 03/21/2025 6:15 AM EST Eufemia WRAY LAB BLOOD ORDERABLES Final R esult Performing Organization Address City/[facility]/ZIP Co de Phone Number [facility] [address] [place] [address], [place] [phone] * Vitamin D 25 hydroxy (2025 5:16 AM EST) Vit D, 25-Hydroxy 48.5 30.0 - 80.0 ng/mL LAB CHEMISTRY METHOD 2025 8:40 AM EST [facility] Blood Venous blood specimen / Unknown Venipuncture / Unknown 2025 5:16 AM EST 2025 5:54 AM EST Eufemia WRAY LAB BLOOD ORDERABLES Final R esult [facility] [address] [place] [address], [place] [phone] * Thyroid stimulating hormone with reflex to free t4 and free t3 (03/17/2025 5:14 AM EST) TSH 1.23 0.40 - 4.00 mcIU/mL LAB CHEMISTRY METHOD 03/17/2025 12:58 PM [facility] Blood Venous blood specimen / Unknown Venipuncture / Unknown 03/17/2025 5:14 AM EST 03/17/2025 5:48 AM EST us Eufemia WRAY LAB BLOOD ORDERABLES Final R esult [facility] [address] [place] [address], * (ABNORMAL) Urinalysis with reflex microscopic and culture (03/16/2025 12:15 PM EST) [facility] Specific [place] Urine 1.020 1.003 - 1.030 LAB URINALYSIS - AUTOMATED METHOD 03/16/2025 1:00 PM [facility] pH, Urine 6.5 5.0 - 8.0 pH LAB URINALYSIS - AUTOMATED METHOD 03/16/2025 1:00 PM [facility] Leukocytes, Urine Trace(A) Negative LAB URINALYSIS - AUTOMATED METHOD 03/16/2025 1:00 PM [facility] Nitrite, Urine Negative Negative LAB URINALYSIS - AUTOMATED METHOD 03/16/2025 1:00 PM [facility] Protein, Urine Negative <=Trace mg/dL LAB URINALYSIS - AUTOMATED METHOD 03/16/2025 1:00 PM [facility] Glucose, Urine Negative Negative mg/dL LAB URINALYSIS - AUTOMATED METHOD 03/16/2025 1:00 PM [facility] Ketones, Urine Negative Negative mg/dL LAB URINALYSIS - AUTOMATED METHOD 03/16/2025 1:00 PM [facility] Urobilinogen , Urine 1.0 0.2 - 1.0 mg/dL LAB URINALYSIS - AUTOMATED METHOD 03/16/2025 1:00 PM [facility] Bilirubin, Urine Negative Negative LAB URINALYSIS - AUTOMATED METHOD 03/16/2025 1:00 PM [facility] Blood, Urine Negative Negative LAB URINALYSIS - AUTOMATED METHOD 03/16/2025 1:00 PM [facility] RBC, Urine 3 0 - 4 /HPF 03/16/2025 1:00 PM [facility] WBC, Urine 10(H) 0 - 4 /HPF 03/16/2025 1:00 PM [facility] Squamous Epithelial, Urine 20 0 - 60 /LPF 03/16/2025 1:00 PM [facility] Crystals, Urine Moderate Amorphous Phosphate crystals. /LPF 03/16/2025 1:00 PM [facility] Bacteria, Urine Negative Negative /HPF 03/16/2025 1:00 PM [facility] Hyaline Casts, Urine 10(H) 0 - 3 /LPF 03/16/2025 1:00 PM [facility] Urine Urine specimen obtained by clean catch procedure / Unknown Non-blood Collection / Unknown 03/16/2025 12:15 PM EST 03/16/2025 12:30 PM EST us Eufemia WRAY LAB URINE ORDERABLES Final R esult [facility] [address] [place] [address], * Grossman urine culture tube (03/16/2025 12:15 PM EST) Extra Tube Hold for add-ons. 03/16/2025 2:01 PM EST [facility] Comment:Auto resulted. Urine Urine specimen obtained by clean catch procedure / Unknown Non-blood Collection / Unknown 03/16/2025 12:15 PM EST 03/16/2025 12:30 PM EST Eufemia WRAY LAB URINE ORDERABLES Final R esult [facility] [address] [place] [address], [place] [phone] * Culture urine (03/16/2025 12:15 PM EST) Culture, Urine 10,000-49,000 CFU/mL Mixed urogenital mary, no uropathogens present. Suggest repeat specimen if clinically indicated. 2025 11:23 AM EST [facility] Urine Urine specimen obtained by clean catch procedure / Unknown Non-blood Collection / Unknown 03/16/2025 12:15 PM EST 03/16/2025 1:00 PM EST Eufemia WRAY LAB MICROBIOLOGY - GENERAL O RDERABLES Final Result Performing Organization Address [facility]/ZIP Co de Phone Number [facility] [address] [place] [address], [place] [phone] * Lavender tube (03/15/2025 5:16 AM EST) Extra Tube Hold for add-ons. 03/15/2025 7:01 AM EST [facility] Comment:Auto resulted. Blood Venous blood specimen / Unknown Venipuncture / Unknown 03/15/2025 5:16 AM EST 03/15/2025 5:41 AM EST Lisa Rendon DO LAB BLOOD ORDERABLES Emma l Result [facility] [address] [place] [address], [place] [phone] * (ABNORMAL) Basic metabolic panel (03/15/2025 5:16 AM EST) Only the most recent of2 resultswithin the time period is included. Sodium 130(L) 133 - 145 mmol/L LAB CHEMISTRY METHOD 03/15/2025 6:13 AM [facility] Potassium 3.9 3.5 - 5.5 mmol/L LAB CHEMISTRY METHOD 03/15/2025 6:13 AM [facility] Chloride 96 96 - 110 mmol/L LAB CHEMISTRY METHOD 03/15/2025 6:13 AM [facility] CO2 28 21 - 32 mmol/L LAB CHEMISTRY METHOD 03/15/2025 6:13 AM [facility] Anion Gap 6 3 - 11 LAB CHEMISTRY METHOD 03/15/2025 6:13 AM [facility] Glucose 103(H) 70 - 100 mg/dL LAB CHEMISTRY METHOD 03/15/2025 6:13 AM [facility] BUN 14 5 - 25 mg/dL LAB CHEMISTRY METHOD 03/15/2025 6:13 AM [facility] Creatinine 0.68(L) 0.70 - 1.30 mg/dL LAB CHEMISTRY METHOD 03/15/2025 6:13 AM [facility] eGFR 97 >=60 mL/min/1. 73m2 LAB CHEMISTRY METHOD 03/15/2025 6:13 AM [facility] Comment:Calculation based on the Chronic Kidney Disease Epidemiology Collaboration (CKD-EPI) equation refit without adjustment for race. BUN/Creatinine Ratio 20.6 LAB CHEMISTRY METHOD 03/15/2025 6:13 AM [facility] Calcium 9.0 8.5 - 10.5 mg/dL LAB CHEMISTRY METHOD 03/15/2025 6:13 AM [facility] Blood Venous blood specimen / Unknown Venipuncture / Unknown 03/15/2025 5:16 AM EST 03/15/2025 5:39 AM EST us Cesar Thao MD LAB BLOOD ORDERABLES Final Resu lt Performing Organization Address City/[facility]/ZIP Co de Phone Number [facility] [address] [place] [address], [place] [phone] * Prothrombin time with INR (03/10/2025 5:41 AM EDT) Protime 12.0 10.6 - 13.9 sec LAB COAGULATION METHOD 03/10/2025 7:48 AM EDT [facility] INR 1.0 LAB COAGULATION METHOD 03/10/2025 7:48 AM EDT [facility] Blood Venous blood specimen / Unknown Venipuncture / Unknown 03/10/2025 5:41 AM EDT 03/10/2025 6:17 AM EDT Rosalia WRAY LAB BLOOD ORDERABLES Final Re sult Performing Organization Address [facility]/ZIP Co de Phone Number [facility] [address] [place] [address], [place] [phone] * SST tube (03/10/2025 5:37 AM EDT) Extra Tube Hold for add-ons. 03/10/2025 8:01 AM EDT [facility] Comment:Auto resulted. Blood Venous blood specimen / Unknown Venipuncture / Unknown 03/10/2025 5:37 AM EDT 03/10/2025 6:20 AM EDT us Lisa Rendon DO LAB BLOOD ORDERABLES Emma l Result Performing Organization Address City/[facility]/ZIP Co de Phone Number [facility] [address] [place] [address], [place] [phone] from Last 3 Months Insurance [employer] [address] [place] [address] Advance Directives Documents on File Type Date Recorded Patient Resource Program Teacher Expl anation Advance Directives and Living Will 03/14/2025 8:29 AM [facility] AUTH EXT Advance Directives and Living Will 03/08/2025 9:03 AM [facility] Advance Directives and Living Will 03/08/2025 9:09 AM HEALTH CARE PROXY * No CPR/Do Not Intubate (Latest Code Status on File) Date Activated Date Inactivated Comments 03/07/2025 4:47 PM 03/31/2025 2:16 PM This code status was ascertained in the following way: Code status discussion: discussion with patient To update the patient's code status, place a code status order. Do not modify or discontinue any currently active code status orders. * Full Code - Default Date Activated Date Inactivated Comments 03/07/2025 2:34 PM 03/07/2025 4:47 PM This is or fernanda is used when code status has not been discussed with the patient, or code status is otherwise unknown/unconfirmed To update the patient's code status, place a code status order. Do not modify or discontinue any currently active code status orders. Care Teams Pre K Special Education Teacher Relationship Specialty Start Date End Date Agueda Grubbs MD [address] [place] [address] PCP - General Internal Medicine 03/07/25
== END 2025-05-09 13:47 | disposition home or self-care (01) ==
LOC: HO.HMCC 13:16
PROVIDERS: PCP Internal Medicine; Visit Provider Internal Medicine
DX: M79.89 Other specified soft tissue disorders (principal)

== ENCOUNTER → 2025-05-09 13:16 | Outpatient (BNVA) | payer MEDICARE, SELFPAY | PROVIDERS: PCP Internal Medicine; Visit Provider Internal Medicine | DX: M79.89 Other specified soft tissue disorders (principal) | CPT/HCPCS: 99212 ==